=== PATIENT | female | born 1990 | race Caucasian/White ===

== ENCOUNTER 2017-05-14 15:15 | Emergency (ER) | payer MEDICAID, OTHER ==
[~2017-05-14] VITALS: Ht 154.9 cm; Wt 70.0 kg
[2017-05-14 15:26] VITALS: Ht 154.9 cm; Wt 70.0 kg
[2017-05-14] MEDS ORDERED: KETOROLAC 30 MG INJ IM STA (16:42)
[2017-05-14] MEDS ORDERED: ONDANSETRON (ODT) 4 MG TAB ODT STA (16:42)
--- NOTE | 2017-05-14 16:43 | ERD ---
ER Documentation Chief Complaint Date/Time DATE: 05/14/17 TIME: 16:41 Chief Complaint pt bib self with c/o headache since earlier today HPI Left calf pain with 2o % WB. pt is s/p Surg repair of a torn Lateral Menses 04/21. pt was on baby ASA x 2 weeks than stopped, pt restarted baby ASA last night ROS All systems reviewed and are negative except as per history of present illness. Medications Home Meds Active Scripts Ibuprofen* (Motrin*) 400 Mg Tab, 400 MG PO Q6, #30 TAB Prov:TATY SLOAN PA-C 05/14/17 Allergies Allergies: Coded Allergies: No Known Allergy (Unverified , 05/14/17) PMhx/Soc History of Surgery: No Anesthesia Reaction: No Hx Neurological Disorder: No Hx Respiratory Disorders: No Hx Cardiac Disorders: No Hx Psychiatric Problems: No Hx Miscellaneous Medical Probl: No Hx Alcohol Use: No Hx Substance Use: No Hx Tobacco Use: No Physical Exam Vitals Vital Signs Date Time Temp Pulse Resp B/P Pulse Ox O2 Delivery O2 Flow Rate FiO2 05/14/17 15:26 91.0 84 16 108/56 98 Physical Exam Const: [] Head: Atraumatic Eyes: Normal Conjunctiva ENT: Normal External Ears, Nose and Mouth. Neck: Full range of motion..~ No meningismus. Resp: Clear to auscultation bilaterally Cardio: Regular rate and rhythm, no murmurs Abd: Soft, non tender, non distended. Normal bowel sounds Skin: No petechiae or rashes Back: No midline or flank tenderness Ext: No cyanosis, or edema Neur: Awake and alert Psych: Normal Mood and Affect Results 24 hrs Current Medications Medications (Trade) Dose Ordered Sig/Valentin Route PRN Reason Start Time Stop Time Status Last Admin Dose Admin Ketorolac Tromethamine (Toradol) 30 mg ONCE STAT IM 05/14/17 16:42 05/14/17 16:44 DC 05/14/17 17:14 Ondansetron HCl (Zofran Odt) 4 mg ONCE STAT ODT 05/14/17 16:42 05/14/17 16:44 DC 05/14/17 17:14 MELVA SQUIRES May 14, 2017 16:43
[2017-05-14] MEDS ORDERED: IBUP400T22 PO (18:02)
--- NOTE | 2017-05-14 18:23 | ERD ---
ER Documentation Chief Complaint Date/Time DATE: 05/14/17 TIME: 18:16 Chief Complaint pt bib self with c/o headache since earlier today HPI Patient is a 27-year-old female who presents to the emergency department for concerns of headache which started earlier this morning. Patient states that she was at the [employer]und[employer]at doing laundry when she developed a "burning sensation " in the occipital region of her head. Patient states the "burning sensation" radiated to the top of her head. Patient states when she "pushed on the burning sensation" at the top of her head and she felt increasingly nervous. States that the "nervousness radiated through her body." Patient states she took Tylenol with some alleviation of symptoms. Patient denies sudden 10/10 thunderclap worsening onset of her pain. Patient denies any blurry vision, vomiting, phonophobia, photophobia, fever, chills, neck pain, neck stiffness, chest pain, shortness of breath, abdominal pain, stool changes, weight loss or LOC. Patient speaking in full sentences. Patient does report feeling stressed. Denies SI/HI. ROS All systems reviewed and are negative except as per history of present illness. Medications Home Meds Active Scripts Ibuprofen* (Motrin*) 400 Mg Tab, 400 MG PO Q6, #30 TAB Prov:TATY SLOAN PA-C 05/14/17 Allergies Allergies: Coded Allergies: No Known Allergy (Unverified , 05/14/17) PMhx/Soc History of Surgery: No Anesthesia Reaction: No Hx Neurological Disorder: No Hx Respiratory Disorders: No Hx Cardiac Disorders: No Hx Psychiatric Problems: No Hx Miscellaneous Medical Probl: No Hx Alcohol Use: No Hx Substance Use: No Hx Tobacco Use: No FmHx Family History: diabetes Physical Exam Vitals Vital Signs Date Time Temp Pulse Resp B/P Pulse Ox O2 Delivery O2 Flow Rate FiO2 05/14/17 18:51 98.4 71 16 124/66 100 Room Air 05/14/17 15:26 91.0 84 16 108/56 98 Physical Exam GENERAL: Well-developed, well-nourished female. Appears in no acute distress. Speaking in full sentences. HEAD: Normocephalic, atraumatic. No deformities or ecchymosis. EYE: Pupils equal, round, and reactive to light. EOMs intact. No conjunctival erythema. No eye discharge. ENT: External ear without any masses or tenderness. Auditory canals clear bilaterally. TM visualized bilaterally, non-erythematous, non-bulging. Nasal mucosa pink with no discharge. Oropharynx is pink without any tonsillar erythema or exudates. No uvula deviation. No kissing tonsils. NECK: Supple. No meningismus. Normal ROM of the neck. LUNG: Clear to auscultation bilaterally. No rhonchi, wheezing, rales or coarse breath sounds. HEART: Regular rate and rhythm. No murmurs, rubs or gallops. BACK: No midline tenderness. EXTREMITIES: Equal pulses bilaterally. No peripheral clubbing, cyanosis or edema. No unilateral leg swelling. NEUROLOGIC: Alert and oriented x3, cooperative. Mood and affect appropriate to situation. Cranial nerves II through XII are grossly intact. Normal speech. Motor exam: 5/5 strength in upper and lower extremities. Sensory exam: Sensation intact to light touch on all four extremities. Cerebellar function exam: No dysmetria on [id number] test. Steady gait. No pronator drift. Results 24 hrs Current Medications Medications (Trade) Dose Ordered Sig/Valentin Route PRN Reason Start Time Stop Time Status Last Admin Dose Admin Ketorolac Tromethamine (Toradol) 30 mg ONCE STAT IM 05/14/17 16:42 05/14/17 16:44 DC 05/14/17 17:14 Ondansetron HCl (Zofran Odt) 4 mg ONCE STAT ODT 05/14/17 16:42 05/14/17 16:44 DC 05/14/17 17:14 Procedures/[facility] MEDICAL DECISION MAKING: This is a 27-year-old female presents with a headache and burning sensation to her head which started earlier today. Patient denied sudden, thunderclap 10/10 pain. Patient denied any fever, chills, nausea, vomiting, photophobia, phonophobia, neck stiffness or visual changes.. Vital signs were reviewed. Patient was afebrile. Patient is not hypoxic. She reported taking Tylenol earlier today which she did have some improvement with. Neurological exam was normal. Urine test was negative. Patient was given Toradol and reported much improvement in symptoms. Given these findings, the patient's presentation is most consistent with tension headache and nervousness. I have a much lower clinical concern for intracranial hemorrhage, meningitis, encephalitis, CO poisoning, temporal arteritis, benign intracranial hypertension , intracranial mass, sinusitis, tension headache, migraine headache, cluster headache. PRESCRIPTION: Ibuprofen DISCHARGE: At this time, patient is stable for discharge and outpatient management. I have encouraged the patient to hydrate well. I have instructed the patient to follow- up with his/her primary care physician in 1-2 days. If symptoms persist, patient may need to see a specialist for further examinations and testing. I have instructed the patient to promptly return to the ER at any time for any new or worsening symptoms including increased increased pain, fever, nausea, vomiting, numbness, neck stiffness, visual changes, weakness or LOC. The patient and/or family expressed understanding of and agreement with this plan. All questions were answered. Home care instructions were provided. Departure Diagnosis: Primary Impression: Headache Headache type: unspecified Headache chronicity pattern: unspecified pattern Intractability: not intractable Qualified Code: R51 - Nonintractable headache, unspecified chronicity pattern, unspecified headache type Additional Impression: Nervousness Condition: Stable Patient Instructions: Self-Care for Headaches Referrals: [facility] YOU HAVE RECEIVED A MEDICAL SCREENING EXAM AND THE RESULTS INDICATE THAT YOU DO NOT HAVE A CONDITION THAT REQUIRES URGENT TREATMENT IN THE EMERGENCY DEPARTMENT. FURTHER EVALUATION AND TREATMENT OF YOUR CONDITION CAN WAIT UNTIL YOU ARE SEEN IN YOUR DOCTORS OFFICE WITHIN THE NEXT 1-2 DAYS. IT IS YOUR RESPONSIBILITY TO MAKE AN APPOINTMENT FOR FOLOW-UP CARE. IF YOU HAVE A PRIMARY DOCTOR --you should call your primary doctor and schedule an appointment IF YOU DO NOT HAVE A PRIMARY DOCTOR YOU CAN CALL OUR PHYSICIAN REFERRAL HOTLINE AT IF YOU CAN NOT AFFORD TO SEE A PHYSICIAN YOU CAN CHOSE FROM THE FOLLOWING [facility] [address] [facility] [address] [facility] [facility] [address] [facility] [address] [facility] [address] [facility] [facility]. [address] [facility] YOU HAVE RECEIVED A MEDICAL SCREENING EXAM AND THE RESULTS INDICATE THAT YOU DO NOT HAVE A CONDITION THAT REQUIRES URGENT TREATMENT IN THE EMERGENCY DEPARTMENT. FURTHER EVALUATION AND TREATMENT OF YOUR CONDITION CAN WAIT UNTIL YOU ARE SEEN IN YOUR DOCTORS OFFICE WITHIN THE NEXT 1-2 DAYS. IT IS YOUR RESPONSIBILITY TO MAKE AN APPOINTMENT FOR FOLOW-UP CARE. IF YOU HAVE A PRIMARY DOCTOR --you should call your primary doctor and schedule and appointment IF YOU DO NOT HAVE A PRIMARY DOCTOR YOU CAN CALL OUR PHYSICIAN REFERRAL HOTLINE AT . IF YOU CAN NOT AFFORD TO SEE A PHYSICIAN YOU CAN CHOSE FROM THE FOLLOWING [facility] INSTITUTIONS: [facility] [address] [place] [address] [facility] [address] [place] [address] [facility] [address] [place] [address] Additional Instructions: Follow-up with your primary care physician for complete physical and blood work. See referral list for clinics in the area. Call your primary care doctor TOMORROW for an appointment during the next 1-2 days.See the doctor sooner or return here if your condition worsens before your appointment time. TATY SLOAN PA-C May 14, 2017 18:23
[2017-05-14 18:51] VITALS: BP 124/66; PULSE 71; RESP 16; TEMP 98.4
== END 2017-05-14 18:52 | disposition home or self-care (01) ==
LOC: FTE 15:15
DX: R51 Headache (principal); R45.0 Nervousness
CPT/HCPCS: 96372; J1885; Z7502; Z7610